=== PATIENT | female | born 1960 | race Caucasian/White ===

== ENCOUNTER 2016-07-21 07:48 | Emergency (ER) | payer SELFPAY ==
[~2016-07-21] VITALS: Wt 110.0 kg
[~2016-07-21 07:48] MED LIST: AMLODIPINE BENAZEPRIL PO; CLIN-73 PO; GLIM4TAB PO
[2016-07-21] MEDS ORDERED: IBUPROFEN 600 MG TAB PO ONE (08:30)
--- NOTE | 2016-07-21 08:41 | ERD ---
ER Documentation Chief Complaint Date/Time DATE: 07/21/16 TIME: 08:36 Chief Complaint sore throat with right ear pain and cough x 3 days HPI This 56-year-old female who presents to the emergency department today complaining of a sore throat for the past 5 days, pain with swallowing and a right earache started yesterday. States she feels like her throat is closing up. Patient that she took Aleve yesterday with no improvement in symptoms. States she has had multiple sick contacts. Denies any fevers or chills, nausea vomiting or diarrhea ROS All systems reviewed and are negative except as per history of present illness. Medications Home Meds Active Scripts Guaifenesin-Dextromethorphan* (Robitussin* DM) 100MG/10MG/5ML Syrup, 10 ML PO Q4H Y for COUGH for 5 Days, ML Prov:DORITA PRIDEC 07/21/16 Acetaminophen* (Tylophen*) 500 Mg Capsule, 1 CAP PO Q6H Y for PAIN AND OR ELEVATED TEMP, #30 CAP Prov:DORITA PRIDE PA-C 07/21/16 Ibuprofen* (Motrin*) 600 Mg Tab, 600 MG PO Q6, #30 TAB Prov:DORITA PRIDE PA-C 07/21/16 Cetirizine Hcl* (Zyrtec*) 10 Mg Capsule, 10 MG PO DAILY, #10 TAB.CHEW Prov:DORITA PRIDEC 07/21/16 Azithromycin* (Zithromax*) 250 Mg Tablet, 250 MG PO .KEELEY DIRECTED, #6 TAB TAKE 500 MG (2 TABS) THE FIRST DAY THEN 250 MG (1 TAB) DAYS 2-5 Prov:DORITA PRIDEC 07/21/16 Clindamycin Hcl* (Clindamycin Hcl*) 300 Mg Capsule, 300 MG PO Q6 for 7 Days, CAP Prov:LATISHA ANDUJAR 09/03/15 Reported Medications Glimepiride* (Glimepiride*) 4 Mg Tablet, 4 MG PO BID 01/11/12 [Amlodipine-Benazepril] CAP No Conflict Check, 5 - 40 MG PO DAILY 01/11/12 Allergies Allergies: Coded Allergies: Penicillins (Verified Allergy, Intermediate, HIVES AND RASH, 01/11/12) PMhx/Soc History of Surgery: Yes ( X2) Anesthesia Reaction: No Hx Neurological Disorder: No Hx Respiratory Disorders: No Hx Cardiac Disorders: Yes (HTN) Hx Psychiatric Problems: No Hx Miscellaneous Medical Probl: No Hx Alcohol Use: No Hx Substance Use: No Hx Tobacco Use: No Physical Exam Vitals Vital Signs Date Time Temp Pulse Resp B/P Pulse Ox O2 Delivery O2 Flow Rate FiO2 07/21/16 07:51 98.6 102 18 157/93 98 Physical Exam Const: No acute distress Head: Atraumatic Eyes: Normal Conjunctiva ENT: Ears TMs normal. Nose no drainage. Throat with mild erythema and right- sided tonsillar enlargement. No exudates. Drainage posterior pharynx. Neck: Full range of motion..~ No meningismus. Resp: Clear to auscultation bilaterally. No absent breath sounds. No wheezing. Cardio: Regular rate and rhythm, no murmurs Abd: Soft, non tender, non distended. Normal bowel sounds Skin: No petechiae or rashes Neur: Awake and alert Psych: Normal Mood and Affect Results 24 hrs Current Medications Medications (Trade) Dose Ordered Sig/Javi Route PRN Reason Start Time Stop Time Status Last Admin Dose Admin Ibuprofen (Motrin) 600 mg ONCE ONCE PO 07/21/16 08:30 07/21/16 08:31 DC 07/21/16 08:44 Procedures/MDM This 56-year-old female who presents from her department today complaining of sore throat and right earache for the past 5 days. Patient states that she has pain with swallowing. On physical exam patient does have some right-sided tender submandibular lymph nodes as well as some right-sided tonsillar enlargement. There is no evidence of exudates however patient has had symptoms for the past week and is now having ear pain as a result. Patient is having intermittent coughing as well. Patient's symptoms at this time consistent with possible tonsillitis versus possible strep pharyngitis versus URI. I have low suspicion for peritonsillar abscess, retropharyngeal abscess, otitis media, PNA , sinusitis, abscess, meningitis, sepsis, or other acute infectious bacterial process. Patient given Motrin here in the emergency department for pain. She is afebrile and otherwise well appearing. Patient was slightly tachycardic however Her oxygen saturation is 98%. Given the patient's age and history of diabetes and hypertension I will give the patient a prescription for azithromycin as the patient is allergic to penicillin. Also give the patient a prescription for Tylenol, Motrin, Robitussin and Zyrtec. At this time the patient is stable for discharge and outpatient management. Patient should follow up with their PCP in the next 1-2 days. Patient did indicate that her primary care physician has recently retired and therefore I have given her a list of resources. They may return to the emergency department sooner for any persistent or worsening of symptoms. Patient understood and agreed with the plan. Departure Diagnosis: Primary Impression: Sore throat Condition: Fair DORITA PRIDE PA-C Jul 21, 2016 08:41
[2016-07-21] MEDS ORDERED: IBUP-1542 PO (08:42)
[2016-07-21] MEDS ORDERED: AZIT250T94 PO (08:42)
[2016-07-21] MEDS ORDERED: CETI10CA PO (08:42)
[2016-07-21] MEDS ORDERED: ACET500C5 PO (08:43)
[2016-07-21] MEDS ORDERED: UDROBDM PO (08:44)
== END 2016-07-21 09:17 | disposition home or self-care (01) ==
LOC: FTE 07:48
DX: J02.9 Acute pharyngitis, unspecified (principal); I10 Essential (primary) hypertension; E11.9 Type 2 diabetes mellitus without complications; Z79.84 Long term (current) use of oral hypoglycemic drugs
CPT/HCPCS: 99283